=== PATIENT | male | born 1955 | race Caucasian/White ===

== ENCOUNTER 2017-05-13 12:18 | Outpatient (CLI) | payer MEDICARE, MEDICAID ==
[2017-05-13] MEDS ORDERED: Iopamidol 370 76% 100 ML VIAL ONE (14:19)
--- NOTE | 2017-05-13 14:40 | CT ---
CT OF THE THORAX WITH IV CONTRAST: Date: 05/13/17 COMPARISON: Prior CT of chest/abdomen/pelvis dated 04/04/17. FINDINGS: The interstitial air space opacity within the posterior left lower lobe has intervally cleared and l ikely reflecting resolved pneumonitis. The scattered emphysematous change is stable. No enlarged lym ph nodes are grossly evident. Hypodensity within the peripheral right hepatic lobe is stable. Left renal cyst is similar appearing . The previously seen comparison abnormality involving T2, T4, and T9 are stable appearing. There has been interval development of healing right 3rd through 5th rib fractures anterolaterally. There has been interval development of a 2.0 cm oval hypodensity within the superior pole of the rig ht kidney, which was subcentimeter in size on a comparison exam in March. This may reflect a rapidl y enlarging cyst or possibly a solid renal neoplasm. IMPRESSION: 1. Resolution of the previously seen air space opacity within the left lower lobe consistent with r esolving pneumonia. 2. Stable emphysema. 3. Interval development of healing anterolateral 3rd through 5th rib fractures on the right. 4. Stable hypodensity within the right hepatic lobe. 5. Enlarging 2.0 cm lesion involving the superior pole of the right kidney. A small, suspected cyst was seen within this location on the comparison examination from March. Further evaluation with CT of the abdomen utilizing renal mass protocol is recommendation. An additional 10 minute delay could be added to the recommended study to evaluate the hypodensity within the right hepatic lobe. Left r enal cyst appears similar. CODE T. POS: [facility]
== END 2017-05-13 12:19 | disposition home or self-care (01) ==
LOC: CT 12:18
PROVIDERS: ATTEND Internal Medicine
DX: J84.10 Pulmonary fibrosis, unspecified (principal); J44.9 Chronic obstructive pulmonary disease, unspecified; J43.9 Emphysema, unspecified; S22.41XD Multiple fractures of ribs, right side, subsequent encounter for fracture with routine healing; N28.89 Other specified disorders of kidney and ureter; R91.1 Solitary pulmonary nodule
CPT/HCPCS: 71260

== ENCOUNTER 2017-05-24 10:51 | Emergency (ER) | payer MEDICARE, MEDICAID ==
[2017-05-24 11:54] LABS: ALT (SGPT) 11 U/L (8-55); AST (SGOT) 19 U/L (5-34); Alkaline Phosphatase 107 U/L (40-150); Anion Gap 12 mmol/L (10-20); BUN (Urea Nitrogen) 10 mg/dL (8.4-25.7); Bilirubin, Total 0.5 mg/dL (0.2-1.2); Calc. Creatinine Clearance 0 mL/min (70-130); Calcium 9.5 mg/dL (7.8-10.44); Carbon Dioxide 28 mmol/L (23-31); Chloride 99 mmol/L (98-107); Estimated GFR-MDRD 77; Globulin 3.7 g/dL (2.4-3.5); Protein, Total 7.7 g/dL (5.8-8.1)
[2017-05-24 11:58] LABS: Troponin I Less than 0.010 ng/mL (< 0.028)
[2017-05-24 12:05] LABS: #Eosinphils 0.6 thou/uL (0.0-0.7); #Lymphocytes 0.9 thou/uL (1.20-3.40); #Monocytes 0.5 thou/uL (0.11-0.59); #Neutrophils 5.7 thou/uL (1.40-6.50); %Basophils 0.2 % (0.0-1.0); %Eosinophils 7.2 % (0.0-10.0); %Lymphocytes 11.5 % (21.0-51.0); %Monocytes 6.3 % (0.0-10.0); Hematocrit 46.1 % (42.0-52.0); Mean Platelet Volume 9.9 fL (7.4-10.4); Red Blood Cell (RBC) Count 5.28 mill/uL (4.70-6.10); White Blood Cell (WBC) Count 7.6 thou/uL (4.8-10.8)
--- NOTE | 2017-05-24 12:51 | RAD ---
LUMBAR SPINE 3 VIEWS: COMPARISON: 04/04/17 CT. HISTORY: A 62-year-old male with low back pain. FINDINGS: There is some irregular vertical height loss of L3 vertebral body which appears stable when compared to the prior 04/04/17 CT. There are generalized spondylosis changes most marked at L4-L5 and L5-S1. Bone demineralization. No evidence for overt acute fracture. IMPRESSION: Stable vertical height loss of L3. Spondylosis with minimal bone demineralization. No overt acute process. POS: [facility]
--- NOTE | 2017-05-24 13:03 | RAD ---
UPRIGHT CHEST 1 VIEW: Date: 05/24/17 HISTORY: 62-year-old male with shortness of breath. COMPARISON: 12/11/16. FINDINGS: Heart size is within normal limits. Mild stable linear and interstitial chronic lung changes. No con fluent pneumonia or overt edema. Atherosclerosis of the aorta. IMPRESSION: Mild stable chronic changes. No acute process. POS: [facility]
== END 2017-05-24 13:10 | disposition home or self-care (01) ==
LOC: ERS 10:51
DX: M54.5 Low back pain (principal); J44.1 Chronic obstructive pulmonary disease with (acute) exacerbation; I10 Essential (primary) hypertension; F32.9 Major depressive disorder, single episode, unspecified; Z87.891 Personal history of nicotine dependence
CPT/HCPCS: 36415; 71010; 72100; 80053; 82553; 84484; 85025; 93005; 94640; J7620

== ENCOUNTER 2017-05-29 15:02 | Emergency (ER) | payer MEDICARE, MEDICAID ==
[2017-05-29] MEDS ORDERED: methylPREDNISolone Sod Succ/PF 125 MG/2 ML VIAL ONE (15:20)
[2017-05-29] MEDS ORDERED: Water For Inject, Bacteriostat 30 ML ONE (15:20)
[2017-05-29 15:26] LABS: Oxyhemoglobin 96.1 % (94.0-97.0); Sodium 136 mmol/L (135-148)
[2017-05-29 15:28] LABS: Modified Allen's Test POSITIVE
[2017-05-29 15:29] LABS: Mode 3L/M NASAL CANNULA
[2017-05-29 15:36] LABS: Hematocrit 47.8 % (42.0-52.0); Mean Platelet Volume 9.2 fL (7.4-10.4); Red Blood Cell (RBC) Count 5.36 mill/uL (4.70-6.10); White Blood Cell (WBC) Count 5.7 thou/uL (4.8-10.8)
--- NOTE | 2017-05-29 15:45 | RAD ---
PORTABLE CHEST ONE VIEW: Date: 05-29-17 Time: 3:35 p.m. History: Dyspnea. FINDINGS: Comparison is made with exam of 05-24-17. The heart size is normal. The lungs are expanded. There are mild infiltrates at the lung bases. No p neumothoraces or pleural effusions are identified. POS: [facility]
[2017-05-29 15:56] LABS: ALT (SGPT) 11 U/L (8-55); AST (SGOT) 21 U/L (5-34); Alkaline Phosphatase 119 U/L (40-150); Anion Gap 14 mmol/L (10-20); BUN (Urea Nitrogen) 10 mg/dL (8.4-25.7); Bilirubin, Total 0.3 mg/dL (0.2-1.2); Calc. Creatinine Clearance 0 mL/min (70-130); Calcium 9.4 mg/dL (7.8-10.44); Carbon Dioxide 34 mmol/L (23-31); Chloride 91 mmol/L (98-107); Estimated GFR-MDRD Greater than 90; Globulin 3.6 g/dL (2.4-3.5); Protein, Total 7.6 g/dL (5.8-8.1)
[2017-05-29 15:57] LABS: Band 1 % (5-11); Neutrophil 74 % (42-75)
[2017-05-29 16:06] LABS: Troponin I 0.011 ng/mL (< 0.028)
[2017-05-29] MEDS ORDERED: ISOVUE-370 76%-LOCM 1 ML ONE (16:12)
--- NOTE | 2017-05-29 16:36 | CT ---
CT OF THE SOFT TISSUES OF THE NECK: INDICATION: History of stridor. COMPARISON: None. FINDINGS: The visualized intracranial contents are unremarkable-appearing. There is mild paranasal sinus dise ase involving the ethmoid air cells and right maxillary sinus. The [employer] member space is normal-appea ring. Parapharyngeal fat is preserved. Parotid and submandibular glands are normal-appearing. The thyroid gland appears within normal limits. No pathologically enlarged lymph nodes are evident. T he visualized aerodigestive tract is within normal limits. There are vascular calcifications involv ing the aortic arch. There is a small pericardial effusion. There is emphysema involving both lung apices. There is scattered degenerative and osteoarthritic change. There is mild compression abno rmality involving T2 which is stable to a comparison CT of the thorax dated 05/13/17. IMPRESSION: Visualized aerodigestive tract appears within normal limits. POS: [facility]
== END 2017-05-29 18:25 | disposition home or self-care (01) ==
LOC: ERS 15:02
DX: J44.1 Chronic obstructive pulmonary disease with (acute) exacerbation (principal); I10 Essential (primary) hypertension; F32.9 Major depressive disorder, single episode, unspecified; Z87.891 Personal history of nicotine dependence
CPT/HCPCS: 70491; 71010; 80053; 82553; 82805; 83880; 84484; 85025; 85379; 93005; 94640; 96374; J2930; J7620

== ENCOUNTER 2017-07-15 08:22 | Outpatient (CLI) | payer MEDICARE, MEDICAID ==
[~2017-07-15 08:22] MED LIST: Iopamidol 370 76% 100 ML VIAL ONE
--- NOTE | 2017-07-15 15:18 | CT ---
CT ABDOMEN WITH AND WITHOUT IV CONTRAST: DATE: 07/15/17. HISTORY: Renal mass. COMPARISON: 04/04/17 and study on 05/13/17. FINDINGS: Again noted is a superior pole left renal cyst with too small to characterize hypodense lesions again seen in each kidney also statistically likely representing cysts. On the CT of the thorax, there wa s a mention of an enlarging lesion within the superior pole right kidney. However, no low-density or enhancing lesion is seen in this region. Findings may have been removed to phase of enhancement and appearance of a lesion on the recent CT of the thorax. The right kidney has a similar appearance to a study on 04/04/17. Previously described low-density lesion in the lateral aspect right hepatic lobe is again present thierno suring 16 mm x 14 mm and is unchanged in size compared to the study on 05/13/17 and also has a similar appearance to the study on 04/04/17. There is a peripheral area of enhancement seen lateral to this low density structure. Appearance is similar on the delayed phase of imaging, and this does not demo nstrate fill-in on the 4-minute delayed image. The prior study demonstrated peripheral nodular areas of enhancement on the prior exam posteriorly as well as laterally but this is not seen on today's ex am. This could be related to cyst with adjacent vascular malformation or possibly atypical hemangiom a. This had more of an appearance of a hemangioma on the study of 04/04/17. There has been no interv al enlargement. Continued followup evaluation in 6 months versus MRI is suggested for further evalua tion. The lung bases, spleen, pancreas, and bilateral adrenal glands have a normal CT appearance. No other free fluid or fluid collection is seen in the abdomen. There is a mild compression fracture involving the L3 vertebral body also seen on the prior study. T here is a sclerotic density seen within the right ileal bone likely related to bone infarction. Ther e has been no other interval change from the prior study. IMPRESSION: 1. There was mention of an enlarging mass in the superior pole right kidney on the CT thorax on 05/13. However, no enlarging hypodense lesion or enhancing lesion is seen within the superior pole rig ht kidney. There are a few subcentimeter low-density lesions seen within the superior pole right kid perfecto which were also noted on the prior exam. The finding on the prior CT thorax may have been relate d to phase of enhancement as that study was obtained in the arterial phase of imaging. 2. Left renal cyst with subcentimeter hypodense renal lesions bilaterally also statistically likely representing cysts. 3. Stable hypodense lesion within the peripheral and lateral aspect of the right hepatic lobe with a djacent focus of enhancement. This does not demonstrate definite fill-in on the delayed phase of jacob ging to definitely suggest a hemangioma, although this could potentially represent atypical hemangiom a. Followup CT abdomen in 6 months versus MRI is recommended for further evaluation. 4. 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 POS: [facility]
== END 2017-07-15 08:23 | disposition home or self-care (01) ==
LOC: CT 08:22
PROVIDERS: ATTEND Internal Medicine
DX: N28.89 Other specified disorders of kidney and ureter (principal); K76.9 Liver disease, unspecified; J44.1 Chronic obstructive pulmonary disease with (acute) exacerbation; M48.56XA Collapsed vertebra, not elsewhere classified, lumbar region, initial encounter for fracture
CPT/HCPCS: 36415; 74170; 82565

== ENCOUNTER 2017-11-10 14:59 | Emergency (ER) | payer MEDICARE, MEDICAID ==
[2017-11-10] MEDS ORDERED: predniSONE 20 MG TAB ONE (16:49)
== END 2017-11-10 17:05 | disposition home or self-care (01) ==
LOC: ERS 14:59
DX: J44.1 Chronic obstructive pulmonary disease with (acute) exacerbation (principal); I10 Essential (primary) hypertension; F32.9 Major depressive disorder, single episode, unspecified; Z87.891 Personal history of nicotine dependence
CPT/HCPCS: 94640; J7506; J7620

== ENCOUNTER 2017-11-26 13:25 | Outpatient (CLI) | payer MEDICARE, MEDICAID ==
[2017-11-26 14:19] LABS: CO2 Tension 37.9 mmHg (35.0-45.0); pH, Arterial 7.41 (7.35-7.45)
[2017-11-26 14:20] LABS: Actual Bicarbonate (HCO3a) 23.7 mEq/L (22-26); Base Excess (BEa) 0.5 mEq/L (0 (+/-) 2.5); Hematocrit-ABG 42.9 % (42.0-52.0); Hemoglobin (Hb) 13.2 g/dL (14.0-18.0); O2 Tension (PaO2) 98.4 mmHg (80.0-100.0)
[2017-11-26 14:22] LABS: Analyzer IN Cardio OR
[2017-11-26 14:23] LABS: ALV-art Gradient 3.955 (0-20); Puncture Site RR
== END 2017-11-26 13:26 | disposition home or self-care (01) ==
LOC: CP 13:25
PROVIDERS: ATTEND Internal Medicine
DX: J44.9 Chronic obstructive pulmonary disease, unspecified (principal); G47.33 Obstructive sleep apnea (adult) (pediatric)
CPT/HCPCS: 82805

== ENCOUNTER 2017-12-25 20:30 | Outpatient (CLI) | payer MEDICARE, MEDICAID | END 2017-12-25 20:31 | disposition home or self-care (01) | LOC: SLEEPLAB 20:30 | PROVIDERS: ATTEND Internal Medicine | DX: G47.33 Obstructive sleep apnea (adult) (pediatric) (principal); J44.9 Chronic obstructive pulmonary disease, unspecified; R53.83 Other fatigue; E66.9 Obesity, unspecified; R35.1 Nocturia; R06.83 Snoring; R09.02 Hypoxemia | CPT/HCPCS: 95810 ==

== ENCOUNTER 2018-01-06 14:25 | Outpatient (CLI) | payer MEDICARE, MEDICAID ==
--- NOTE | 2018-01-06 16:56 | MRI ---
MRI CERVICAL SPINE WITHOUT CONTRAST: Date: 01/06/18 COMPARISON: None. CORRELATION: CT soft tissue neck dated 05/29/17. TECHNIQUE: Cervical spine MRI is performed without intravenous Gadolinium administration. Multisequential, multi planar imaging is performed. HISTORY: Neck pain. Bilateral arm and hand numbness and tingling. Chronic pain. FINDINGS: Appropriate T1 marrow signal intensity of the cervical vertebra. Vertebral body height is maintained of the cervical spine. No evidence of fracture. There is T1 and T2 hyperintensity involving the super ior aspect of T2 compatible with a Type II Modic change with associated chronic mild compression frac ture. No significant retropulsion. Visualized brain parenchyma, cervicomedullary junction, cervical cord, and the upper thoracic cord ness ve an overall normal appropriate signal intensity. There appears to be fluid along the right craniocervical articulation, as well as articulation of the right lateral mass of C1 and C2. Findings are presumed to be on the basis of degenerative change. There is 3.4 mm anterolisthesis of C3 upon C4, 3.2 mm retrolisthesis of C4 upon C5, 4.6 mm anterolist hesis of C5 upon C6, and 2.0 mm anterolisthesis of C6 upon C7. There is also anterolisthesis of T1 up on T2. C2-C3: Central disc osteophyte complex deforms the thecal sac. There is moderate central canal stenosis. Deg enerative changes of bilateral uncovertebral joints results in mild bilateral foraminal narrowing. C3-C4: Broad based disc osteophyte complex with resultant severe central canal stenosis. Moderate right and severe left foraminal narrowing. C3-C5: Broad based disc osteophyte complex results in moderate central canal stenosis. There is deformity of the cord, without T2 hyperintensity of the cord. Right neural foramen is patent. Moderate to severe left foraminal narrowing. C5-C6: Broad based disc osteophyte complex abuts the thecal sac. There is a nonspecific T2 hyperintensity al mary the posterior left aspect of the central spinal canal which may represent a small synovial cyst m easuring 5.0 mm. There is deformity of the left hemicord posteriorly secondary to the aforementioned synovial cyst. Overall, there is mild to moderate central canal stenosis. There is moderate left face t hypertrophy. Neural foramina are patent. C6-C7: Broad based disc osteophyte complex with mild central canal stenosis. Mild right foraminal narrowing. Left foramen is patent. C7-T1: No significant disc osteophyte complex. No significant central canal stenosis. Neural foramina are pa tent. T1-T2: There is a broad based disc bulge with mild ligamentum flavum thickening. Mild central canal stenosis . Mild bilateral foraminal narrowing. IMPRESSION: Degenerative changes of the cervical spine as detailed above. There is severe central canal stenosis at C3-C4. Additional levels of significant stenosis as defined above. POS: [facility]
== END 2018-01-06 14:26 | disposition home or self-care (01) ==
LOC: SCSMRI 14:25
PROVIDERS: ATTEND Family Medicine
DX: M47.22 Other spondylosis with radiculopathy, cervical region (principal); M48.02 Spinal stenosis, cervical region
CPT/HCPCS: 72141

== ENCOUNTER 2018-01-21 19:30 | Outpatient (CLI) | payer MEDICARE, MEDICAID | END 2018-01-21 19:31 | disposition home or self-care (01) | LOC: SLEEPLAB 19:30 | PROVIDERS: ATTEND Internal Medicine | DX: G47.33 Obstructive sleep apnea (adult) (pediatric) (principal); R53.83 Other fatigue; E66.9 Obesity, unspecified; R06.83 Snoring; J44.9 Chronic obstructive pulmonary disease, unspecified; R35.1 Nocturia; R09.02 Hypoxemia | CPT/HCPCS: 95811 ==

== ENCOUNTER 2018-01-31 08:52 | Outpatient (CLI) | payer MEDICARE, MEDICAID ==
--- NOTE | 2018-01-31 09:34 | RAD ---
CERVICAL SPINE AP AND LATERAL STANDARD: Date: 01/31/18 HISTORY: M54.2, cervicalgia. COMPARISON: MRI dated 01/06/18. FINDINGS: There is no acute fracture. There is mild degenerative disc space narrowing at C3-4, C4-5, and C6-7. There is extensive facet arthropathic changes throughout the spine. There is Grade I C5 over C6 anterolisthesis which does not increase with flexion, although does decre ase with extension. IMPRESSION: Mild C5 over C6 anterolisthesis with mild translation with extension. POS: [facility]
== END 2018-01-31 08:53 | disposition home or self-care (01) ==
LOC: TBSIIMAG 08:52
PROVIDERS: ATTEND Neurological Surgery
DX: M54.2 Cervicalgia (principal); M43.12 Spondylolisthesis, cervical region
CPT/HCPCS: 72040

== ENCOUNTER 2018-02-20 08:23 | Outpatient (CLI) | payer MEDICARE, MEDICAID ==
--- NOTE | 2018-02-20 10:11 | ULT ---
COMPLETE ABDOMINAL ULTRASOUND: HISTORY: Generalized abdominal pain with weight loss and nausea. The patient reports that the abdominal skin hurts when he rubs on it, for a while now. COMPARISON: None. TECHNIQUE: Multiplanar maldonado-scale and color Doppler images were obtained in a complete abdominal ultrasound. FINDINGS: The liver is slightly nodular in appearance without focal lesions or intrahepatic ductal dilatation. There is a mobile shadowing gallstone in the gallbladder. There is no gallbladder wall thickening o r pericholecystic fluid. The common bile duct is normal, measuring 30 mm. The aorta and inferior vena cava are normal in caliber. Evaluation of the pancreas is limited. The spleen is normal in echogenicity without focal lesions and measures 11.1 cm in length. Both kidneys are normal in echogenicity without hydronephrosis or calculi and measure 9.1 and 9.3 cm in length on the right and left, respectively. IMPRESSION: 1. Cholelithiasis. 2. Possible nodularity in the liver that could be secondary to cirrhosis. POS: [facility]
== END 2018-02-20 08:24 | disposition home or self-care (01) ==
LOC: SCSULT 08:23
PROVIDERS: ATTEND Family Medicine
DX: R10.9 Unspecified abdominal pain (principal); R53.83 Other fatigue; R63.4 Abnormal weight loss; K80.20 Calculus of gallbladder without cholecystitis without obstruction
CPT/HCPCS: 76700

== ENCOUNTER 2018-03-10 12:44 | Outpatient (CLI) | payer MEDICARE, MEDICAID ==
[2018-03-10] MEDS ORDERED: ISOVUE-370 76%-LOCM 1 ML ONE (14:41)
== END 2018-03-10 12:45 | disposition home or self-care (01) ==
LOC: BICCT 12:44
PROVIDERS: ATTEND Family Medicine
DX: K76.89 Other specified diseases of liver (principal); E87.1 Hypo-osmolality and hyponatremia; R11.2 Nausea with vomiting, unspecified; R63.4 Abnormal weight loss; D18.03 Hemangioma of intra-abdominal structures
CPT/HCPCS: 74170

== ENCOUNTER 2018-11-25 06:40 | Outpatient (CLI) | payer MEDICARE, MEDICAID ==
--- NOTE | 2018-11-25 07:52 | ULT ---
Exam: Hepatic ultrasound including vascular duplex with color and spectral Doppler imaging: HISTORY: Cirrhosis COMPARISON: 02/20/2018 FINDINGS: Liver is somewhat nodular and borderline enlarged. Multiple mobile gallstones without gallbladder wal l thickening or pericholecystic fluid. Common bile duct 0.5 cm. Visualized pancreas and right kidney are unremarkable. Vascular duplex with color and spectral Doppler imaging demonstrates antegrade hepatic and portal leonardo ous flow. IMPRESSION: Borderline size somewhat nodular appearing liver. Multiple cholelithiasis without evidence for acute cholecystitis. Antegrade portal and hepatic venous flow.
== END 2018-11-25 06:41 | disposition home or self-care (01) ==
LOC: SCSULT 06:40
PROVIDERS: ATTEND Physician Assistant Medical
DX: B18.2 Chronic viral hepatitis C (principal); D12.6 Benign neoplasm of colon, unspecified; K74.60 Unspecified cirrhosis of liver; J44.9 Chronic obstructive pulmonary disease, unspecified; K59.09 Other constipation; Z80.0 Family history of malignant neoplasm of digestive organs
CPT/HCPCS: 76705

== ENCOUNTER 2018-12-08 08:29 | Day surgery (SDC) | payer MEDICARE, MEDICAID ==
[2018-12-04 16:00] VITALS: BMI 27.9
[2018-12-08] MEDS ORDERED: Ketamine 50 MG/ML (10ML VIAL) ONE (09:14)
[2018-12-08] MEDS ORDERED: Albuterol Sulfate 2.5 mg/3 ml Neb NEB SCH (09:15)
[2018-12-08] MEDS ORDERED: Lidocaine 4% PF 5 ML AMP NEB SCH (09:15)
[2018-12-08] MEDS ORDERED: Albuterol Sulfate 2.5 mg/3 ml Neb ONE (09:20)
[2018-12-08] MEDS ORDERED: PROPOFOL 200 MG/20 ML VIAL ONE (11:19)
--- NOTE | 2018-12-08 16:34 | OP ---
DATE OF PROCEDURE: 12/08/2018 PROCEDURES PERFORMED: EGD with biopsy, colonoscopy with biopsy. INDICATION FOR PROCEDURES: History of cirrhosis with screening for esophageal varices, prior history of adenomatous polyps of the colon, family history of colon cancer (brother diagnosed in his late 50s). DESCRIPTION OF PROCEDURE: After the risks and benefits of the procedures were explained to the patient and the patient's surrogate (sister) including risks of bleeding, infection, perforation, reactions to anesthesia, aspiration and/or pain, informed consent was obtained. The patient was then taken to the endoscopy suite, where deep sedation was administered via propofol, ketamine, and anesthesia support. Once adequate sedation was achieved, the standard gastroscope was introduced into the mouth with intubation of the esophagus, stomach, and the proximal small intestine with the findings listed below. Upon completion of this portion of the procedure, all equipment was removed from the patient and the bed was rotated 180 degrees in preparation for the colonoscopy. After a digital rectal examination was performed, the standard colonoscope was introduced into the rectum and advanced to the terminal ileum without difficulty. The quality of the prep was excellent. The patient tolerated the procedure well with no immediate perioperative complications. Upon conclusion of the procedure, all equipment was removed from the patient. The patient was transferred to Day Stay in satisfactory condition. EGD FINDINGS: Esophagus: Normal-appearing mucosa was seen in the proximal, mid, and distal esophagus. There was no evidence of erosions, ulcerations, mass, lesions, esophageal varices, or active/recent bleeding. Stomach: Large patches of increased mucosal erythema that exhibited a mosaic type pattern were seen all throughout the stomach in the gastric cardia, fundus, body, greater curvature, incisura, and into the proximal antrum. There was no associated bleeding upon immediate inspection, although the mucosa was very friable to the passage of the gastroscope. However, a 4 mm clean based ulceration was seen at the incisura on retroflexion, but did not exhibit any high-risk stigmata of bleeding (no blood clot, red spots, or visible vessel seen). Multiple biopsies were taken from this ulceration for and placed in a specimen jar for evaluation. On gastric retroflexion, there was no evidence of gastric varices. Otherwise, there was no evidence of erosions, mass lesions, or active/recent bleeding. Duodenum: Normal-appearing mucosa was seen in both the duodenal bulb and second portion of the duodenum. There was no evidence of erosions, ulcerations, mass, lesions, or active/recent bleeding. IMPRESSION: 1. 4 mm clean based ulceration seen at the incisura status post biopsies, but concerning for Helicobacter pylori versus NSAID use. 2. [id number]-[id number] portal hypertensive gastropathy. 3. No evidence of esophageal or gastric varices. COLONOSCOPY FINDINGS: Digital rectal examination: Moderately decreased sphincter tone was seen on digital rectal examination, but was otherwise normal. Colon findings: Normal-appearing mucosa was seen in the terminal ileum, as well as at the ileocecal valve and appendiceal orifice. Normal-appearing mucosa was then seen in the ascending transverse and descending colons. Small scattered diverticula were seen in the sigmoid colon without any other associated abnormalities. A 2 to 3 mm polyp was seen in the rectum and completely removed with biopsy forceps. This was placed in a specimen jar and sent for evaluation. Normal-appearing mucosa was seen on rectal retroflexion. IMPRESSION: 1. 2-3 mm rectal polyp, status post biopsy forceps. 2. Mild sigmoid diverticulosis. RECOMMENDATIONS: 1. We will follow up on the biopsy results with repeat colonoscopy interval based on the polyp results. If negative for adenomatous change, would repeat colonoscopy in 5 years based on his family history of colon cancer. 2. If the gastric biopsies are positive for H pylori, I would treat with confirmation of eradication. 3. I would repeat the EGD in 8-12 weeks to confirm healing of the gastric ulceration. 4. Would place the patient on pantoprazole 40 mg b.i.d. for the next 8 weeks until evaluation with repeat EGD. 5. Would avoid any NSAIDs. 6. Follow up in the GI Clinic in 4 weeks for review of the biopsy results and further management of his chronic hepatitis-C/cirrhosis. Job ID: [id number]
== END 2018-12-08 11:00 | disposition home or self-care (01) ==
LOC: SDC 08:29
PROVIDERS: ATTEND Internal Medicine
PROC: 0DB78ZX Excision of Stomach, Pylorus, Via Natural or Artificial Opening Endoscopic, Diagnostic (ICD-10-PCS; principal; 2018-12-08)
PROC: 0DBP8ZX Excision of Rectum, Via Natural or Artificial Opening Endoscopic, Diagnostic (ICD-10-PCS; 2018-12-08)
DX: Z12.11 Encounter for screening for malignant neoplasm of colon (principal); K62.1 Rectal polyp; K57.30 Diverticulosis of large intestine without perforation or abscess without bleeding; K29.50 Unspecified chronic gastritis without bleeding; B96.81 Helicobacter pylori [H. pylori] as the cause of diseases classified elsewhere; K25.9 Gastric ulcer, unspecified as acute or chronic, without hemorrhage or perforation; K76.6 Portal hypertension; K31.89 Other diseases of stomach and duodenum; K74.60 Unspecified cirrhosis of liver; I10 Essential (primary) hypertension; G47.30 Sleep apnea, unspecified; M81.0 Age-related osteoporosis without current pathological fracture; B18.2 Chronic viral hepatitis C; K59.00 Constipation, unspecified; J44.9 Chronic obstructive pulmonary disease, unspecified; Z87.891 Personal history of nicotine dependence; Z86.010 Personal history of colon polyps; Z80.0 Family history of malignant neoplasm of digestive organs; Z79.83 Long term (current) use of bisphosphonates; Z79.899 Other long term (current) drug therapy
CPT/HCPCS: 88305; 88312; 94640; J2704; J7611

== ENCOUNTER 2019-02-10 06:44 | Day surgery (SDC) | payer MEDICARE, MEDICAID ==
[2019-02-09 11:10] VITALS: BMI 27.8
--- NOTE | 2019-02-10 10:24 | OP ---
DATE OF PROCEDURE: 02/10/2019 PROCEDURE PERFORMED: Esophagogastroduodenoscopy with biopsy. INDICATIONS FOR PROCEDURE: Prior history of gastric ulceration, H. pylori infection. DESCRIPTION OF PROCEDURE: After the risks and benefits of the procedure were explained to the patient including risks of bleeding, infection, perforation, reactions to anesthesia, aspiration, and/or pain, informed consent was obtained. The patient was then taken to the endoscopy suite, where deep sedation was administered via propofol and anesthesia support. Once adequate sedation was achieved, the standard gastroscope was introduced into the mouth with intubation of the esophagus, stomach, and the proximal small intestines with the findings listed below. The patient tolerated the procedure well with no immediate perioperative complications. Upon conclusion of the procedure, all equipment was removed from the patient and he was transferred to Day Stay in satisfactory condition. FINDINGS: Esophagus: Normal-appearing mucosa was seen in the proximal, mid, and distal esophagus. There was no evidence of erosions, ulcerations, mass, lesions, or active/recent bleeding. Stomach: There was increased mucosal erythema seen throughout the entire stomach in a diffuse type pattern that did exhibit a mild mosaic type pattern as well and located in the gastric cardia, fundus, body, greater curvature, antrum, and incisura. There was no associated bleeding upon immediate inspection, although the mucosa was friable to the passage of the gastroscope and did exhibit some mild oozing of blood with pressure placed by the scope itself. A small amount of retained solid food was also seen in the gastric fundus precluding visualization of that particular region. However, upon evaluation of the incisura, which was the prior site of his gastric ulceration, a small linear ulceration measuring approximately 4 mm in length and maybe 1 mm in diameter was seen and did not exhibit any high-risk stigmata of bleeding (no blood clot, red spots or visible vessel seen). Multiple biopsies were taken from this ulceration and placed in a specimen jar for evaluation and confirmation of eradication for H. pylori. On gastric retroflexion, there was no evidence of gastric varices. Otherwise, there was no evidence of erosions or mass lesions. Duodenum: Normal-appearing mucosa was seen in both the duodenal bulb and second portion of the duodenum. There was no evidence of erosions, ulcerations, mass, lesions, or active/recent bleeding. IMPRESSION: 1. A linear 4 mm gastric ulceration was seen in the incisura without high-risk stigmata of bleeding, but concerning for continued Helicobacter pylori infection. 2. Moderate portal hypertensive gastropathy. 3. No evidence of esophageal or gastric varices. RECOMMENDATIONS: 1. Would continue the patient on PPI daily, although this may have to be limited while he is on concurrent treatment for chronic hepatitis C with Epclusa. 2. Would avoid any NSAIDs. 3. Would follow up on the biopsy results obtained today and re-treat the patient with quadruple therapy if positive for H. pylori. 4. Follow up in the GI Clinic as scheduled next week. Job ID: [id number]
[2019-02-10] MEDS ORDERED: PROPOFOL 200 MG/20 ML VIAL ONE (11:53)
== END 2019-02-10 10:32 | disposition home or self-care (01) ==
LOC: SDC 06:44
PROVIDERS: ATTEND Internal Medicine
PROC: 0DB68ZX Excision of Stomach, Via Natural or Artificial Opening Endoscopic, Diagnostic (ICD-10-PCS; principal; 2019-02-10)
DX: K29.50 Unspecified chronic gastritis without bleeding (principal); K76.6 Portal hypertension; K31.89 Other diseases of stomach and duodenum; Z79.899 Other long term (current) drug therapy
CPT/HCPCS: 88305; 88312; J2704

== ENCOUNTER 2019-06-22 10:05 | Outpatient (CLI) | payer MEDICARE, MEDICAID ==
--- NOTE | 2019-06-22 10:46 | RAD ---
EXAM: XR Cervical Spine 4 View Min PROVIDED CLINICAL HISTORY: Neck and back pain with bilateral hand numbness for 18 months. COMPARISON: 01/31/2018 obtained from [facility]. FINDINGS: C1 to the cervicothoracic junction is seen on the lateral view. As noted on prior exam, there is mild anterolisthesis of C5 on C6 with degree of listhesis measuring approximately 3 mm. This anterolisthesis corrects on the extension when compared to flexion and neutral positioning. There is narrowing of the intervertebral disc spaces throughout the cervical spine greatest at the C6 -7 level. Scattered osteophytes are seen. Multilevel facet hypertrophic changes are identified. Vertebral body heights are within normal limits, and no fracture is visualized. No other interval sara nge. IMPRESSION: 1. Mild anterolisthesis of C5 on C6 which does correct on extension when compared to flexion and neut ral positioning. 2. Multilevel degenerative changes in the cervical spine including multilevel facet hypertrophic bonner ges.
== END 2019-06-22 10:06 | disposition home or self-care (01) ==
LOC: BICRAD 10:05
PROVIDERS: ATTEND Neurological Surgery
DX: M54.2 Cervicalgia (principal); M43.12 Spondylolisthesis, cervical region; M47.812 Spondylosis without myelopathy or radiculopathy, cervical region
CPT/HCPCS: 72050

== ENCOUNTER 2019-07-13 09:42 | Outpatient (CLI) | payer MEDICARE, MEDICAID ==
--- NOTE | 2019-07-13 11:53 | MRI ---
MRI Cervical Spine WO Con History: Cervical myelopathy Comparison: Radiograph June 2019 Findings: Exam is limited due to extensive motion artifact. Cerebral tonsils terminate at the level of the foramen magnum. There is no marrow infiltrative proces s. Old compression deformity of T2 is similar. Abnormal increased cord signal at C3-C5 due to cord impingement. Levels are as follows: C2/C3: Mild degenerative disc space height loss. Circumferential disc osteophyte complex. High-grade facet arthropathy bilaterally. Moderate bilateral neural foraminal narrowing. Spinal canal measures approximately 7 mm. C3/C4: Severe facet degenerative changes. There is anterolisthesis of C3 over C4 approximate 5 mm. Th ere is cord impingement with the canal only measuring approximately 4 mm. Severe neural foraminal narrowing bilaterally. C4/C5: High-grade degenerative disc space height loss. Circumferential disc osteophyte complex. Sever e left and moderate to severe right hypertrophic facet arthrosis. Ligamentum flavum hypertrophy. The spinal canal measures 5 mm. Severe left and moderate right neural foraminal narrowing. C5/C6: Severe left hypertrophic facet arthrosis. 2 mm anterolisthesis. Ligament of flavum hypertrophy . Spinal canal measures approximately 7 mm. Moderate to severe left and mild right neural foraminal narrowing. C6/C7: Mild anterior degenerative disc space height loss. Circumferential disc osteophyte complex. Mi ld right and moderate left hypertrophic facet arthrosis. Moderate left and mild right neural foraminal narrowing. C7/T1: Low-grade degenerative disc space height loss. No neural foraminal or spinal canal narrowing. Impression: High-grade spondylosis with cord impingement from C3-C5 with evidence of myomalacia as we ll as multilevel severe neural foraminal narrowing with nerve root abutment.
--- NOTE | 2019-07-13 13:46 | MRI ---
MRI Abdomen W WO Con History: Hepatitis C. Cirrhosis of liver. Hepatoma surveillance Comparison: Hepatic Doppler November 2018 Findings: No significant pleural effusion. No significant pericardial fluid. Hemangioma within hepatic segment 5 with peripheral centripetal enhancement. Cysts within hepatic seg ment 2. Punctate foci of enhancement hepatic segment 5 and 6 without definite corresponding mass likely vascu lar shunting. No abnormal arterial hyperenhancing hepatic mass. The spleen, pancreas, adrenal glands are unremarkab le. Bilateral renal cysts. No free intraperitoneal fluid. Portal vein is patent. Cholelithiasis without cholecystitis. No intrah epatic or extrahepatic dilatation. No pancreatic duct dilatation. No retroperitoneal periaortic adenopathy. Spleen is mildly enlarged.. Impression: 1. No abnormal enhancing mass in the liver to suggest hepatocellular carcinoma. 2. Bilateral renal cysts, some which contain peripheral hemosiderin indicating a component of hemorrh age. 3. Cholelithiasis without cholecystitis.
== END 2019-07-13 09:43 | disposition home or self-care (01) ==
LOC: SCSMRI 09:42
PROVIDERS: ATTEND Physician Assistant Medical
DX: M50.00 Cervical disc disorder with myelopathy, unspecified cervical region (principal); K74.60 Unspecified cirrhosis of liver; B18.2 Chronic viral hepatitis C; K80.20 Calculus of gallbladder without cholecystitis without obstruction; N28.1 Cyst of kidney, acquired; M47.812 Spondylosis without myelopathy or radiculopathy, cervical region; M48.02 Spinal stenosis, cervical region; M62.89 Other specified disorders of muscle
CPT/HCPCS: 72141; 74183; 82565

== ENCOUNTER 2021-08-06 17:08 | Emergency (ER) | payer MEDICARE, MEDICAID ==
[2021-08-06 17:41] LABS: #Eosinphils 0.2 thou/uL (0.0-0.7); #Lymphocytes 1.9 thou/uL (1.20-3.40); #Monocytes 0.5 thou/uL (0.11-0.59); #Neutrophils 4.3 thou/uL (1.40-6.50); %Basophils 0.2 % (0.0-1.0); %Eosinophils 3.3 % (0.0-10.0); %Monocytes 7.1 % (0.0-10.0); %Neutrophils 62.3 % (42.0-75.0); Hemoglobin 13.7 g/dL (14.0-18.0); Mean Corpuscular HGB CONC 32.1 g/dL (32.0-36.0); Mean Corpuscular Hemoglobin 29.6 pg (27.0-31.0); Mean Platelet Volume 7.5 fL (7.4-10.4); Platelet Count 151 thou/uL (130-400); RBC Distribution Width 12.1 % (11.5-14.5); Red Blood Cell (RBC) Count 4.64 mill/uL (4.70-6.10); White Blood Cell (WBC) Count 6.9 thou/uL (4.8-10.8)
[2021-08-06] MEDS ORDERED: Ketorolac Tromethamine 30 MG/ML VIAL ONE (17:52)
[2021-08-06 18:07] LABS: ALT (SGPT) 8 U/L (8-55); AST (SGOT) 13 U/L (5-34); Albumin 4.1 g/dL (3.4-4.8); Alkaline Phosphatase 83 U/L (40-110); Anion Gap 11 mmol/L (10-20); BUN (Urea Nitrogen) 15 mg/dL (8.4-25.7); Bilirubin, Total 0.2 mg/dL (0.2-1.2); Calc. Creatinine Clearance 0 mL/min (70-130); Calcium 9.5 mg/dL (7.8-10.44); Carbon Dioxide 26 mmol/L (23-31); Chloride 107 mmol/L (98-107); Globulin 3.1 g/dL (2.4-3.5); Glucose 90 mg/dL (80-115); Lipase 41 U/L (8-78); Potassium 4.3 mmol/L (3.5-5.1); Protein, Total 7.2 g/dL (5.8-8.1); Sodium 140 mmol/L (136-145)
== END 2021-08-06 19:55 | disposition home or self-care (01) ==
LOC: ERS 17:08
DX: R07.89 Other chest pain (principal); J43.9 Emphysema, unspecified; I10 Essential (primary) hypertension; Z87.891 Personal history of nicotine dependence; Z79.899 Other long term (current) drug therapy
CPT/HCPCS: 71045; 80053; 83690; 83735; 84484; 85025; 93005; 96374; J1885

== ENCOUNTER 2025-05-18 15:44 | Observation (INO) | payer MEDICARE ==
[2025-05-18 16:38] LABS: #Basophils 0.05 10x3/uL (0.0-0.2); #Eosinophils 0.35 10x3/uL (0.0-0.7); #Monocytes 0.51 10x3/uL (0.11-0.59); #Neutrophils 3.30 10x3/uL (1.40-6.50); %Basophils 0.9 % (0.0-1.0); %Eosinophils 6.0 % (0.0-10.0); %Lymphocytes 27.7 % (21.0-51.0); %Monocytes 8.7 % (0.0-10.0); %Neutrophils 56.5 % (42.0-75.0); Hematocrit 40.9 % (42.0-52.0); Hemoglobin 12.9 g/dL (14.0-18.0); Mean Corpuscular Hemoglobin 28.6 pg (27.0-31.0); Mean Corpuscular Volume 90.7 fL (78.0-98.0); Platelet Count 159 10x3/uL (130-400); Red Blood Cell (RBC) Count 4.51 mill/uL (4.70-6.10); White Blood Cell (WBC) Count 5.84 10x3/uL (4.8-10.8)
[2025-05-18 16:57] LABS: ALT (SGPT) 7 U/L (Less than 45); AST (SGOT) 16 U/L (11-34); Albumin 3.7 g/dL (3.1-4.5); Alkaline Phosphatase 78 U/L (40-110); Anion Gap 13 mmol/L (10-20); BUN (Urea Nitrogen) 13 mg/dL (8.4-25.7); Bilirubin, Total 0.3 mg/dL (0.3-1.2); Calc. Creatinine Clearance 0 mL/min (70-130); Calcium 9.3 mg/dL (7.8-10.44); Carbon Dioxide 29 mmol/L (23-31); Chloride 104 mmol/L (98-107); Globulin 3.3 g/dL (2.4-3.5); Glucose 93 mg/dL (80-115); Potassium 4.1 mmol/L (3.5-5.1); Sodium 142 mmol/L (136-145)
[2025-05-18 19:59] LABS: Bacteria/HPF None Seen HPF (None Seen); CAUTI Indications for Culture Dysuria,urgency,freq; Glucose, Urine (Dipstick) Normal (Negative); Leukocyte Negative Leu/uL (Negative); Protein, Urine (Dipstick) Negative (Neg-Trace); RBC/HPF 0-3 HPF (0-3); Specific Gravity, Urine 1.024 (1.002-1.036); WBC/HPF 0-3 HPF (0-3)
[2025-05-18 20:07] LABS: Urine Culture Reflex No No
[2025-05-18] MEDS ORDERED: Azithromycin 500 MG VIAL ONE (20:29)
[2025-05-18] MEDS ORDERED: Melatonin 3 MG TAB PO PRN (21:59)
[2025-05-18] MEDS ORDERED: Acetaminophen 325 MG TAB PO PRN (21:59)
[2025-05-18 22:58] VITALS: BMI 29.6
[2025-05-18] MEDS ORDERED: Albuterol 200 PUFF (6.7GM INHALER) INH PRN (23:31)
[2025-05-19 04:00] LABS: #Basophils Less than 0.03 10x3/uL (0.0-0.2); #Eosinophils Less than 0.03 10x3/uL (0.0-0.7); #Monocytes 0.03 10x3/uL (0.11-0.59); #Neutrophils 3.07 10x3/uL (1.40-6.50); %Basophils 0.3 % (0.0-1.0); %Eosinophils 0.3 % (0.0-10.0); %Lymphocytes 13.3 % (21.0-51.0); %Monocytes 0.8 % (0.0-10.0); %Neutrophils 85.0 % (42.0-75.0); Hematocrit 40.3 % (42.0-52.0); Hemoglobin 12.9 g/dL (14.0-18.0); Mean Corpuscular Hemoglobin 28.9 pg (27.0-31.0); Mean Corpuscular Volume 90.2 fL (78.0-98.0); Platelet Count 149 10x3/uL (130-400); Red Blood Cell (RBC) Count 4.47 mill/uL (4.70-6.10); White Blood Cell (WBC) Count 3.61 10x3/uL (4.8-10.8)
[2025-05-19 04:15] LABS: ALT (SGPT) 8 U/L (Less than 45); AST (SGOT) 20 U/L (11-34); Albumin 3.4 g/dL (3.1-4.5); Alkaline Phosphatase 76 U/L (40-110); Anion Gap 12 mmol/L (10-20); BUN (Urea Nitrogen) 12 mg/dL (8.4-25.7); Bilirubin, Total 0.3 mg/dL (0.3-1.2); Calc. Creatinine Clearance 96 mL/min (70-130); Calcium 8.9 mg/dL (7.8-10.44); Carbon Dioxide 24 mmol/L (23-31); Chloride 105 mmol/L (98-107); Globulin 3.3 g/dL (2.4-3.5); Glucose 155 mg/dL (80-115); Potassium 4.3 mmol/L (3.5-5.1); Sodium 137 mmol/L (136-145)
[2025-05-19] MEDS: Mometasone 100 MCG HFA INHALER (RT USE) INH SCH (07:28)
[2025-05-19] MEDS: Enoxaparin 40 MG (0.4 mL) SYRINGE SC SCH (07:52)
[2025-05-19] MEDS: BuPROPion XL 150 MG ER.TAB PO SCH (07:53)
[2025-05-19] MEDS: Azithromycin 250 MG TAB PO SCH (07:53)
[2025-05-19] MEDS: Lisinopril 5 MG TAB PO SCH (07:53)
[2025-05-19] MEDS: predniSONE 20 MG TAB PO SCH (07:53)
[2025-05-19] MEDS: Metamucil PACK PO SCH (07:54)
[2025-05-19 15:50] VITALS: BP 107/72; TEMP 98
[2025-05-21] MEDS ORDERED: PNEUMOC 20-VAL CONJ-DIP CRM/PF 0.5 ML SYRINGE IM ONE (23:00)
== END 2025-05-19 16:19 | disposition home or self-care (01) ==
LOC: ERS 15:44 → T4-A 21:31
PROVIDERS: ADMIT Family Medicine; ATTEND Family Medicine
DX: J44.1 Chronic obstructive pulmonary disease with (acute) exacerbation (principal); D64.9 Anemia, unspecified; R60.0 Localized edema; I10 Essential (primary) hypertension; N40.0 Benign prostatic hyperplasia without lower urinary tract symptoms; Z87.891 Personal history of nicotine dependence; Z79.51 Long term (current) use of inhaled steroids; Z79.899 Other long term (current) drug therapy
CPT/HCPCS: 71045; 80053 ×2; 81001; 83880; 84484; 85025 ×2; 93971; 94640 ×2; 96365; 96375; 99285; J0456; J1650; J2919; 36415; 96372; G0378; J7512

== ENCOUNTER 2025-07-30 10:35 | Outpatient (CLI) | payer MEDICARE, MEDICAID ==
[2025-07-30 11:13] LABS: Estimated GFR - POC 72.0
[2025-07-30] MEDS ORDERED: Iopamidol 370 76% 100 ML VIAL ONE (13:39)
== END 2025-07-30 10:36 | disposition home or self-care (01) ==
LOC: CT 10:35
PROVIDERS: ATTEND Internal Medicine
DX: J44.1 Chronic obstructive pulmonary disease with (acute) exacerbation (principal); D18.03 Hemangioma of intra-abdominal structures; M48.54XA Collapsed vertebra, not elsewhere classified, thoracic region, initial encounter for fracture
CPT/HCPCS: 36415; 71260; 82565; Q9967